=== PATIENT | female | born 1995 | race Caucasian/White ===

== ENCOUNTER 2017-03-06 17:42 | Emergency (ER) | payer SELFPAY ==
[2017-03-06 17:48] VITALS: BP 126/75; BMI 26.2
[2017-03-06] MEDS ORDERED: BENADRYL CAP 50 MG PO ONE (18:12)
[2017-03-06] MEDS ORDERED: DECADRON INJ IM ONE (18:12)
--- NOTE | 2017-03-06 18:14 | DR.RASH ---
HPI - Time Seen Time seen: 16:10 - PCP Primary Care Physician: ÓSCAR - HPI Comment HPI Comment: Patient denies any unusual contacts or food - Complaint Chief Complaint:: PT. C/O RED, ITCHY RASH TO BODY THAT APPEARED ABOUT 10:00 A.M. AND HAS GOTTEN WORSE. PT. HAS WELPS UNDER BILATERAL ARMS. Onset of Chief Complaint: 03/06/17 - Source History Provided: Patient - Mode of Arrival Mode of Arrival: Ambulatory PMH - PM Past Medical History: Yes Past Medical History: Anxiety Past Medical History Comment: HYPOGLYCEMIA Past Surgical History: Yes Surgical History: - Family History History of Family Medical Conditions: Yes Family Medical History: Cancer - Social History Does patient currently use any type of tobacco product: Yes Have you used tobacco products in the last 12 months: Yes Type of Tobacco Use: Cigarettes Does any household member use tobacco: Yes Alcohol Use: Rarely Do you use any recreational Drugs:: No Lives With: Family Lives Where: Home - infectious screening In the last 2 months have you had wt loss of >10#?: NO Have you had fever, night sweats or hemotysis?: No Have you traveled outside the country in the last 6 months?: No Isolation: Standard ROS - Review of Systems Eyes: No Symptoms Reported ENTM: No Symptoms Reported Respiratoy: No Symptoms Reported Cardiovascular: No Symptoms Reported Gastrointestinal/Abdominal: No Symptoms Reported Genitourinary: No Symptoms Reported Neurological: No Symptoms Reported Musculoskeletal: Other (rash on trunk) Integumentary: Rash (on trunk) Endocrine: No Symptoms Reported Psychiatric: No Symptoms Reported All Other Systems: Reviewed and Negative PE - Vital Signs Vitals: Temperature 98.1 F Pulse Rate 88 Respiratory Rate 17 Blood Pressure [Right Arm] 104/56 Blood Pressure 126/75 O2 Sat by Pulse Oximetry 98 - General Limitations: No Limitations General Appearance: Alert, In No Apparent Distress - Head Head Exam: Normal Inspection, Atraumatic - Eyes Eye exam: Normal Appearance, PERRL, EOMI, Scleral Icterus - ENT ENT Exam: Normal Exam External Ear Exam: Normal External Inspection TM/Canal Exam: Bilateral Normal Nose Exam: Normal Nose Exam Nasal Speculum Exam: Bilateral Normal Mouth Exam: Normal Inspection Teeth Exam: Normal Inspection Throat Exam: Normal Inspection - Neck Neck Exam: Normal Inspection - Chest Chest Inspection: Normal Inspection - Respiratory Respiratory Exam: Normal Lung Sounds Bilat Respiratory Exam: Bilateral Clear to Auscultation - Cardiovascular Cardiovascular Exam: Regular Rate, Normal Rhythm - Abdominal Exam Abdominal Exam: Normal Inspection, Normal Bowel Sounds Abdominal Tenderness: negative: RUQ, RLQ, LUQ, LLQ, Epigastrium, Suprapubic, Diffuse, Mild, Moderate, Severe, Other - Extremities Extremities Exam: Normal Inspection, Full ROM - Back Back Exam: Normal Inspection, Full ROM - Neurologic Neurological Exam: Alert, Oriented X3, CN II-XII Intact - Psychiatric Psychiatric Exam: Normal Affect, Normal Mood - Skin Skin Exam: Warm, Dry, Intact Type of Lesion: Rash (macular papular erythematous) Course - Reevaluation 1st: Unchanged - Diagnosis Discharge Problem: Allergic reaction Qualifiers: Encounter type: initial encounter Qualified Code(s): T78.40XA - Allergy, unspecified, initial encounter - Discharge Plan Condition: Stable - Follow ups/Referrals Follow ups/Referrals: NFD,None [Primary Care Provider] - 3 days - Instructions
[2017-03-06] MEDS ORDERED: DECADRON INJ ONE (18:17)
[2017-03-06] MEDS ORDERED: BENADRYL CAP/TAB 25 MG PO ONE (18:19)
== END 2017-03-06 18:45 | disposition home or self-care (01) ==
LOC: ER 18:04
DX: R21 Rash and other nonspecific skin eruption (principal); T78.40XA Allergy, unspecified, initial encounter
CPT/HCPCS: 96372; 99282; J1100